=== PATIENT | female | born 1995 | race Caucasian/White ===

== ENCOUNTER 2021-02-13 07:26 | Outpatient (RCR) | payer BC, SELFPAY ==
[2021-02-13 07:34] VITALS: BP 122/78; PULSE 101; TEMP 35.7; O2SAT 100
[2021-02-13] MEDS: ACETAMINOPHEN 325 MG TABLET 650 MG PO (07:43)
[2021-02-13] MEDS: FAMOTIDINE 20 MG TABLET PO (07:43)
[2021-02-13] MEDS: diphenhydrAMINE HCl CAP 25 MG CAPSULE PO (07:43)
[2021-02-13] MEDS: HYDROCORTISONE SODIUM SUCCINATE 100 MG/2 ML VIAL IV PUSH (08:11)
--- NOTE | 2021-02-13 08:16 | PC.NURSE ---
Patient with chest pain and shortness of breath. Patient given solucortef and infusion placed on hold. At 0817, patient states she is normal back to normal. Vital Signs pulse 89, oxygen saturation 100%, blood pressure 113/79. Will restart patient infusion in about 20 minutes.
--- NOTE | 2021-02-13 08:39 | PC.NURSE ---
Resumed medication at 0839. Patient is currently having no further chest tightness or shortness of breath.
[2021-02-13 09:31] VITALS: BP 107/74
--- NOTE | 2021-02-14 09:23 | PC.NURSE ---
Patient states she feels better after monoclonal antibody treatment, patient states she has her sense of smell back.
== END 2021-02-13 17:00 ==
LOC: AMCINF 07:26
PROVIDERS: PCP Family Medicine; Visit Provider Internal Medicine Hematology & Oncology
DX: U07.1 COVID-19 (principal)
CPT/HCPCS: 96374; A9270; J1720; M0245; Q0245